=== PATIENT | female | born 1970 | race African-American/Black ===

== ENCOUNTER 2018-04-20 13:45 | Observation (INO) | payer OTHER ==
--- NOTE | 2018-04-20 15:09 | PDOC ---
History of Present Illness - General Chief Complaint: Revisit, Lab Variance Stated Complaint: LAB VARIANCE (PCP SENT) Time Seen by Provider: 04/20/18 14:42 History Source: Patient Exam Limitations: No Limitations - History of Present Illness Initial Comments: 04/20/18 15:06 47 yr female history of hypothyroidsim, fibroids, sent in by her EDUCATIONAL PARAPROFESSIONAL for low h&H. Pt has had heavy menstrual bleeding for 2-3 weeks. Pt feels tired, weak, and has occasional palpitations. Pt denies shortness of breath, no chest pain no dizzyness or abd pain. Timing/Duration: reports: getting worse Quality: reports: mild Past History - Past Medical History Allergies/Adverse Reactions: Allergies Allergy/AdvReac Type Severity Reaction Status Date / Time No Known Allergies Allergy Verified 04/20/18 13:48 Home Medications: Ambulatory Orders Levothyroxine [Synthroid -] 112 mcg PO DAILY 04/20/18 COPD: No Thyroid Disease: Yes - Suicide/Smoking/Psychosocial Hx Smoking History: Never smoked Review of Systems - Review of Systems Able to Perform ROS?: Yes Is the patient limited Turkish proficient: No Constitutional: No: Symptoms Reported HEENTM: No: Symptoms Reported Respiratory: No: Symptoms reported Cardiac (ROS): No: Symptoms Reported ABD/GI: Yes: Symptoms Reported *Physical Exam - Vital Signs Last Vital Signs Temp Pulse Resp BP Pulse Ox 99.1 F 102 H 18 140/73 100 04/20/18 13:46 04/20/18 13:46 04/20/18 13:46 04/20/18 13:46 04/20/18 13:46 - Physical Exam General Appearance: Yes: Nourished, Appropriately Dressed HEENT: positive: EOMI, BK, TMs Normal, Pharynx Normal, Pale Conjunctivae Neck: positive: Supple Respiratory/Chest: positive: Lungs Clear, Normal Breath Sounds Cardiovascular: positive: Regular Rhythm, Regular Rate Gastrointestinal/Abdominal: positive: Soft Musculoskeletal: positive: Normal Inspection Extremity: positive: Normal Capillary Refill, Normal Inspection, Normal Range of Motion Integumentary: positive: Normal Color, Dry, Warm Neurologic: positive: recreational director II-XII NML intact, Fully Oriented, Alert, Normal Mood/ Affect, Normal Response, Motor Strength 5/5 Heart Score/ECG Review - History History: Slightly suspicious - Age Age: 45-65 - Risk Factors Risk Factors Heart Score: No Hx Hypercholesterolemia, No Hx Hypertension, No Hx Diabetes, No Smoking History, No Positive family hx of cardiac disease, No Hx Obesity Based on the list above the patient has:: No risk factors known - ECG Intrepretation Rhythm: Regular Rhythm (NSR HR 81) - ECG Impressions Normal ECG: Yes Non-specific ST Elevation: No Ischemic Changes: No ED Treatment Course - LABORATORY CBC & Chemistry Diagram: 04/21/18 06:30 04/20/18 15:00 Medical Decision Making - Medical Decision Making 04/20/18 15:22 cc: heavy vaginal bleeding, tired, weak sent for low H&H denies chest pain or SOB, no abd pain or urinary symptoms will check labs , possible transfusion 04/20/18 15:32 04/20/18 15:40 2uPRBC placed order 04/20/18 16:27 admit to hospitalist consult plad to EDUCATIONAL PARAPROFESSIONAL 04/20/18 16:32 case discussed with will place in OBS 2UPRBC ordered 04/20/18 17:24 spoke to (EDUCATIONAL PARAPROFESSIONAL) will consult on pt in the hospital, will order pelvic trans vag US *DC/Admit/Observation/Transfer Diagnosis at time of Disposition: Symptomatic anemia - Discharge Dispostion Decision to Admit order: Yes - Referrals - Patient Instructions - Post Discharge Activity
[2018-04-20 15:39] LABS: BASO % 1.6 % (0-2.0); EOS % 1.1 % (0-4.5); HEMATOCRIT 21.3 % (32.4-45.2); LYMPH % 33.8 % (8-40); MCH 17.6 pg (25.7-33.7); MCHC 29.3 g/dl (32.0-36.0); MEAN CELL VOLUME 60.1 fl (80-96); MEAN PLT VOLUME 9.1 fl (7.5-11.1); MONO % 5.6 % (3.8-10.2); NEUT % 57.9 % (42.8-82.8); PLATELET COUNT 463 K/MM3 (134-434); RBC 3.54 M/mm3 (3.60-5.2)
[2018-04-20 15:43] LABS: HEMOGLOBIN 6.2 GM/dL (10.7-15.3)
[2018-04-20 15:48] LABS: INR 1.1 (0.83-1.09)
[2018-04-20 15:51] LABS: ACTIVATED PTT 24.2 SECONDS (25.2-36.5)
[2018-04-20 15:57] LABS: ALBUMIN 3.8 g/dl (3.4-5.0); ALK PHOS 62 U/L (45-117); ANION GAP 7 MMOL/L (8-16); BILIRUBIN,TOTAL 0.2 mg/dL (0.2-1); BLOOD UREA NITROGEN 9 mg/dL (7-18); CALCIUM 9.1 mg/dL (8.5-10.1); CHLORIDE 108 mmol/L (98-107); CO2 25 mmol/L (21-32); CREATININE 0.5 mg/dL (0.55-1.3); GLUCOSE,RANDOM 96 mg/dL (74-106); POTASSIUM 4.3 mmol/L (3.5-5.1); SGOT/AST 18 U/L (15-37); SGPT/ALT 20 U/L (13-61); SODIUM 140 mmol/L (136-145); TOT PROT 7.5 g/dl (6.4-8.2)
--- NOTE | 2018-04-20 16:44 | PDOC ---
*Physical Exam - Vital Signs Last Vital Signs Temp Pulse Resp BP Pulse Ox 99.1 F 102 H 18 140/73 100 04/20/18 13:46 04/20/18 13:46 04/20/18 13:46 04/20/18 13:46 04/20/18 13:46 - Physical Exam General Appearance: Yes: Nourished Neck: positive: Trachea midline Respiratory/Chest: positive: Lungs Clear Cardiovascular: positive: Regular Rhythm, Regular Rate, S1, S2 Musculoskeletal: positive: Normal Inspection Extremity: positive: Normal Capillary Refill, Normal Inspection Integumentary: positive: Normal Color, Dry, Warm Neurologic: positive: cloth brushing and sueding supervisor II-XII NML intact, Fully Oriented, Alert, Normal Mood/ Affect ED Treatment Course - LABORATORY CBC & Chemistry Diagram: 04/20/18 15:00 04/20/18 15:00 - ADDITIONAL ORDERS Additional order review: Laboratory Results 04/20/18 04/20/18 04/20/18 15:00 15:00 15:00 PT with INR 13.00 INR 1.10 H PTT (Actin FS) 24.2 L Sodium 140 Potassium 4.3 Chloride 108 H Carbon Dioxide 25 Anion Gap 7 L BUN 9 Creatinine 0.5 L Creat Clearance w eGFR > 60 Random Glucose 96 Calcium 9.1 Total Bilirubin 0.2 AST 18 ALT 20 Alkaline Phosphatase 62 Total Protein 7.5 Albumin 3.8 Crossmatch See Detail 04/20/18 15:00 RBC 3.54 L MCV 60.1 L MCHC 29.3 L RDW 26.0 H MPV 9.1 Neutrophils % 57.9 Lymphocytes % 33.8 Monocytes % 5.6 Eosinophils % 1.1 Basophils % 1.6 Medical Decision Making - Medical Decision Making 04/20/18 16:42 47 yo F with h/o fibroid uterus, heavy periods here with irregular bleeding between periods for 2 weeks. pt states is still bleeding much less. describes crampy abd pain. does feel lightheaded, and dizzy. no sob no cp. no bloody stool.s was seen by dr Manning, told her hgb was low to come to ED. no other current complaints. 04/20/18 16:43 on exam pt awake alert lungs clear heart rrr no mrg. abd soft mild suprapubic ttp. no rebound no guarding. skin warm and dry. pt seen and examined with Maile Armani, agree with her assessment and plan. will likely need to be admitted for symptomatic anemia. *DC/Admit/Observation/Transfer Diagnosis at time of Disposition: Symptomatic anemia - Referrals Referrals: Nelly Marmolejo DO [Primary Care Provider] - - Patient Instructions - Post Discharge Activity
[2018-04-20 17:17] LABS: ANISOCYTOSIS 3+
--- NOTE | 2018-04-20 20:39 | HP ---
Admitting History and Physical - Primary Care Physician PCP: Car Roldan - Admission History of Present Illness: 47 yo F with h/o fibroid uterus, heavy periods here with irregular bleeding between periods for 2 weeks. pt states is still bleeding much less. describes crampy abd pain. does feel lightheaded, and dizzy. no sob no cp. no bloody stool was seen by dr Burk, told her hgb was low to come to ED. no other current complaints. - Past Medical History Reproductive: Yes: Fibroids - Smoking History Smoking history: Never smoked Home Medications - Allergies Allergies/Adverse Reactions: Allergies Allergy/AdvReac Type Severity Reaction Status Date / Time No Known Allergies Allergy Verified 04/20/18 13:48 - Home Medications Home Medications: Ambulatory Orders Levothyroxine [Synthroid -] 112 mcg PO DAILY 04/20/18 Physical Examination Vital Signs: Vital Signs Temperature 98.4 F 04/20/18 19:54 Pulse Rate 81 04/20/18 19:54 Respiratory Rate 18 04/20/18 19:54 Blood Pressure 113/65 04/20/18 19:54 O2 Sat by Pulse Oximetry (%) 100 04/20/18 19:51 Constitutional: Yes: No Distress HENT: Yes: Atraumatic Neck: Yes: Supple Cardiovascular: Yes: Regular Rate and Rhythm Respiratory: Yes: CTA Bilaterally Gastrointestinal: Yes: Normal Bowel Sounds Extremities: Yes: WNL Edema: No Peripheral Pulses WNL: Yes Neurological: Yes: Alert, Oriented Labs: CBC, BMP 04/20/18 15:00 04/20/18 15:00 Imaging - Results Ultrasound: Report Reviewed Problem List - Problems (1) Symptomatic anemia Assessment/Plan: WILL TRANSFUSE 2 U PRBC FU H/H Code(s): D64.9 - ANEMIA, UNSPECIFIED (2) Fibroids Code(s): D21.9 - BENIGN NEOPLASM OF CONNECTIVE AND OTHER SOFT TISSUE, UNSP Assessment/Plan Laboratory Tests 04/20/18 04/20/18 04/20/18 15:00 15:00 15:00 WBC 10.0 RBC 3.54 L Hgb 6.2 L* Hct 21.3 L MCV 60.1 L MCH 17.6 L MCHC 29.3 L RDW 26.0 H Plt Count 463 H MPV 9.1 Absolute Neuts (auto) 5.8 Neutrophils % 57.9 Lymphocytes % 33.8 Monocytes % 5.6 Eosinophils % 1.1 Basophils % 1.6 Nucleated RBC % 0 Hypochromia 3+ Anisocytosis 3+ PT with INR 13.00 INR 1.10 H PTT (Actin FS) 24.2 L Sodium 140 Potassium 4.3 Chloride 108 H Carbon Dioxide 25 Anion Gap 7 L BUN 9 Creatinine 0.5 L Creat Clearance w eGFR > 60 Random Glucose 96 Calcium 9.1 Total Bilirubin 0.2 AST 18 ALT 20 Alkaline Phosphatase 62 Total Protein 7.5 Albumin 3.8 Urine HCG, Qual Blood Type Antibody Screen Crossmatch 04/20/18 04/20/18 04/20/18 15:00 16:39 17:50 WBC RBC Hgb Hct MCV MCH MCHC RDW Plt Count MPV Absolute Neuts (auto) Neutrophils % Lymphocytes % Monocytes % Eosinophils % Basophils % Nucleated RBC % Hypochromia Anisocytosis PT with INR INR PTT (Actin FS) Sodium Potassium Chloride Carbon Dioxide Anion Gap BUN Creatinine Creat Clearance w eGFR Random Glucose Calcium Total Bilirubin AST ALT Alkaline Phosphatase Total Protein Albumin Urine HCG, Qual Negative Blood Type B POSITIVE B POSITIVE Antibody Screen Negative Crossmatch See Detail
[2018-04-21 00:07] VITALS: BMI 32.0
[2018-04-21] MEDS ORDERED: LEVOTHYROXINE NA 112 MCG TABLET (FP) PO SCH (07:00)
[2018-04-21 08:48] LABS: HEMATOCRIT 24.8 % (32.4-45.2); HEMOGLOBIN 7.9 GM/dL (10.7-15.3); MCHC 31.8 g/dl (32.0-36.0); MEAN CELL VOLUME 65.9 fl (80-96); MEAN PLT VOLUME 9.2 fl (7.5-11.1); PLATELET COUNT 410 K/MM3 (134-434); RBC 3.76 M/mm3 (3.60-5.2); RDW 32.4 % (11.6-15.6)
[2018-04-21 10:29] LABS: ANISOCYTOSIS 2+; MACROCYTOSIS 1+; OVALOCYTE 1+; PLATELET ESTIMATE NORMAL; TARGET CELLS 1+
--- NOTE | 2018-04-21 13:10 | EKG ---
Test Reason : Blood Pressure : / mmHG Vent. Rate : 081 BPM Atrial Rate : 081 BPM P-R Int : 114 ms QRS Dur : 066 ms QT Int : 382 ms P-R-T Axes : 046 024 016 degrees QTc Int : 443 ms POOR DATA QUALITY, INTERPRETATION MAY BE ADVERSELY AFFECTED NORMAL SINUS RHYTHM NORMAL ECG NO PREVIOUS ECGS AVAILABLE Confirmed by MD CONG, PALMIRA ([id number]) on 04/21/2018 1:10:09 PM Referred By: Confirmed By:PALMIRA GAR MD
[2018-04-21 15:24] VITALS: BP 116/73; PULSE 84; TEMP 98.8
--- NOTE | 2018-04-21 15:36 | DS ---
Physical Examination Vital Signs: Vital Signs Temperature 98.8 F 04/21/18 15:22 Pulse Rate 84 04/21/18 15:22 Respiratory Rate 18 04/21/18 15:22 Blood Pressure 116/73 04/21/18 15:22 O2 Sat by Pulse Oximetry (%) 100 04/21/18 08:00 Constitutional: Yes: No Distress HENT: Yes: Atraumatic Neck: Yes: Supple Cardiovascular: Yes: Regular Rate and Rhythm Respiratory: Yes: CTA Bilaterally Gastrointestinal: Yes: Normal Bowel Sounds Extremities: Yes: WNL Neurological: Yes: Alert, Oriented Labs: CBC, BMP 04/21/18 06:30 04/20/18 15:00 Discharge Summary Reason For Visit: SECONDARY ANEMIA Current Active Problems Symptomatic anemia (Acute) - Instructions Diet, Activity, Other Instructions: check cbc in 2-3 days Follow up with private BOTTOM CRANE OPERATOR Doctor Referrals: Anahi Thibodeaux MD [Staff Physician] - Nelly Marmolejo DO [Primary Care Provider] - Disposition: HOME - Home Medications Comprehensive Discharge Medication List: Ambulatory Orders Levothyroxine [Synthroid -] 112 mcg PO DAILY 04/20/18 see your bucket hooker fu cbc
== END 2018-04-21 16:45 | disposition home or self-care (01) ==
LOC: JER 13:45 → JERBED 16:31 → J8W 23:51
PROVIDERS: ADMIT Internal Medicine; ATTEND Internal Medicine
PROC: 30233N1 Transfusion of Nonautologous Red Blood Cells into Peripheral Vein, Percutaneous Approach (ICD-10-PCS; principal; 2018-04-20)
DX: D64.89 Other specified anemias (principal); D21.9 Benign neoplasm of connective and other soft tissue, unspecified; E03.9 Hypothyroidism, unspecified
CPT/HCPCS: 36415; 36430; 76830-TC; 80053; 84703; 85025; 85610; 85730; 86850; 86900; 86901; 86922; 93005; 93010; 99285-25; G0378; P9038; P9058

== ENCOUNTER 2018-06-01 04:58 | Inpatient (IN) | payer OTHER ==
[2018-05-26 13:19] VITALS: BMI 35.9
[2018-06-01] MEDS ORDERED: CEFAZOLIN 1 GM in DEXTROSE 5%-WATER - 50 ML IVPB ONE (06:51)
[2018-06-01] MEDS ORDERED: ROCURONIUM BROMIDE 50 MG/5 ML VIAL ONE ×2 (07:30→09:39)
[2018-06-01] MEDS ORDERED: fentaNYL CITRATE 250 MCG/5 ML VIAL ONE (07:30)
[2018-06-01] MEDS ORDERED: MIDAZOLAM HCL 2 MG/2 ML SINGLE DOSE VIAL ONE (07:30)
[2018-06-01] MEDS ORDERED: SUCCINYLCHOLINE CHLORIDE 200 MG/10 ML VIAL ONE (07:30)
[2018-06-01] MEDS ORDERED: PROPOFOL 20 ML ONE ×2 (07:30→09:39)
[2018-06-01] MEDS ORDERED: DEXAMETHASONE SOD PHOSPHATE 4 MG/1 ML VIAL ONE ×3 (07:31→11:11)
[2018-06-01] MEDS ORDERED: LIDOCAINE HCL/PF 2% SDV 5ML VIAL ONE ×2 (07:31→09:38)
[2018-06-01] MEDS ORDERED: PHENAZOPYRIDINE HCL 100 MG TABLET (FP) ONE (07:40)
[2018-06-01] MEDS ORDERED: ceFAZolin SODIUM 1 GM VIAL ONE ×2 (07:41→19:33)
--- NOTE | 2018-06-01 08:00 | HP ---
History & Physical Update - History History: No Change - Physical Physical: No Change - Assessment Assessment: No Change - Plan Plan: No Change (No change in HP)
[2018-06-01] MEDS: PHENAZOPYRIDINE HCL 100 MG TABLET (FP) PO ONE (08:10)
[2018-06-01] MEDS ORDERED: ACETAMINOPHEN 325 MG TABLET (FP) PO PRN (08:11)
[2018-06-01] MEDS ORDERED: IBUPROFEN 800 MG/8 ML IJ IVPB PRN (08:11)
[2018-06-01] MEDS ORDERED: BUPIVACAINE HCL/PF 0.5% (5MG/ML) 10 ML VIAL ONE (09:26)
[2018-06-01] MEDS ORDERED: ceFAZolin SODIUM 1 GM VIAL IVPB ONE (09:43)
[2018-06-01] MEDS ORDERED: PROMETHAZINE HCL 25 MG/1 ML VIAL IVPB PRN (10:22)
[2018-06-01] MEDS ORDERED: ONDANSETRON 4 MG/2 ML VIAL IVPUSH PRN (10:22)
[2018-06-01] MEDS ORDERED: DEXAMETHASONE SOD PHOSPHATE 4 MG/1 ML VIAL IVPUSH PRN (10:22)
[2018-06-01] MEDS ORDERED: PROMETHAZINE HCL 25 MG/1 ML VIAL IVPUSH PRN (10:22)
[2018-06-01] MEDS ORDERED: GLYCOPYRROLATE 0.2 MG/1 ML VIAL ONE (11:36)
[2018-06-01] MEDS ORDERED: BENZOIN TINCTURE SWABSTICK TP ONE (11:47)
--- NOTE | 2018-06-01 12:07 | OP ---
Operative Note - Note: Operative Date: 06/01/18 Pre-Operative Diagnosis: Anemia, menorrhagia, uterine leiomas Operation: Total abdominal hysterectomy (open), bilateral salpingectomy Findings: as dictated Implants: none Post-Operative Diagnosis: Same as Pre-op Surgeon: Anahi Thibodeaux Client Experience Manager: Víctor Trisatn Anesthesiologist/CYLINDER BLOCK MECHANIC: Darvin Nelson Anesthesia: General Specimens Removed: Uterus, bilateral uterine tubes Estimated Blood Loss (mls): 600 (ml) Drains & Tubes with Location: none Drains, Volume Out (mls): 175 (ml urine (orange-pyridium))
--- NOTE | 2018-06-01 12:08 | SURG ---
Surgery Assembler And Tester Electronics Note Assembler And Tester Electronics: Víctor Tristan PA-C (Suzy) Date of Service: 06/01/18 Diagnosis: Anemia, menorrhagia, uterine leiomas Procedure: Total abdominal hysterectomy (open), bilateral salpingectomy I was present for the entirety of the operative procedure. For further detail, please refer to operative report. Visit type - Case Type Case Type: Scheduled - Emergency Emergency Visit: No - New patient This patient is new to me today: Yes Date on this admission: 06/01/18 - Critical Care Critical Care patient: No
[2018-06-01] MEDS: HYDROmorphone *PCA* 10MG/50ML DISP.SYRIN PCA SCH (12:12)
[2018-06-01] MEDS ORDERED: LACTATED RINGERS SOLUTION 1,000 ML/1,000 ML INFUS.BAG IV SCH (12:15)
[2018-06-01] MEDS ORDERED: ACETAMINOPHEN 1000 MG/100 ML VIAL (NON FORMULARY) IVPB ONE (12:18)
--- NOTE | 2018-06-01 14:46 | OP ---
Operative Note - Note: Operative Date: 06/01/18 Pre-Operative Diagnosis: Leiomyomatous Uterus. Pelvic Pain. Anemia. Menorrhagia Operation: Total Abdominal Hysterectomy. Bilateral salpingectomy Findings: Uterus 20 leiomyomatous uterus Post-Operative Diagnosis: Same as Pre-op Surgeon: Anahi Thibodeaux Grounds Worker: Víctor Tristan Anesthesiologist/FINANCIAL SPECIALIST: Darvin Nelson Anesthesia: General Specimens Removed: Uterus 20 cm leiomyomatous uterus Estimated Blood Loss (mls): 700 Operative Report Dictated: Yes
[2018-06-01] MEDS ORDERED: CEFAZOLIN 1 GM/D5W 1 GM/50 ML BAG IVPB SCH ×2 (16:00→19:00)
[2018-06-01 16:57] LABS: BASO % 0.3 % (0-2.0); HEMATOCRIT 27.8 % (32.4-45.2); HEMOGLOBIN 9.5 GM/dL (10.7-15.3); MCH 25.3 pg (25.7-33.7); MCHC 34.2 g/dl (32.0-36.0); MEAN PLT VOLUME 9.9 fl (7.5-11.1); MONO % 2.2 % (3.8-10.2); NEUT % 93.5 % (42.8-82.8); PLATELET COUNT 262 K/MM3 (134-434); RBC 3.76 M/mm3 (3.60-5.2); RDW 27.9 % (11.6-15.6); WHITE BLOOD COUNT 13.9 K/mm3 (4.0-10.0)
[2018-06-01 17:31] LABS: ANION GAP 8 MMOL/L (8-16); BLOOD UREA NITROGEN 9 mg/dL (7-18); CALCIUM 8.4 mg/dL (8.5-10.1); CHLORIDE 107 mmol/L (98-107); CO2 23 mmol/L (21-32); CREATININE 0.6 mg/dL (0.55-1.3); GLUCOSE,RANDOM 142 mg/dL (74-106); POTASSIUM 4.4 mmol/L (3.5-5.1); SODIUM 137 mmol/L (136-145)
[2018-06-01 18:49] LABS: ANISOCYTOSIS 3+; MACROCYTOSIS 2+; PLATELET ESTIMATE ADEQUATE
--- NOTE | 2018-06-01 18:53 | OP ---
DATE OF OPERATION: 06/01/2018 PREOPERATIVE DIAGNOSES: Leiomyomas of uterus, pelvic pain, anemia, menorrhagia. OPERATION: Total abdominal hysterectomy and bilateral salpingectomy. SURGEON: Hannah Ladd MD PLANT CUSTODIAN: YOSSI Tristan ANESTHESIOLOGIST: Darvin Nelson MD ANESTHESIA: General. ESTIMATED BLOOD LOSS: 700 mL. PROCEDURE: Patient was taken to the operating room, placed in supine position, prepped and draped in the usual sterile fashion. A timeout was performed in accordance with hospital regulation. Ayala catheter was inserted into the bladder. Attention was turned to the abdomen where a Pfannenstiel skin incision was made with the scalpel. Cautery was then used to go through layers of abdominal wall to the level of the fascia. Fascia was cut in the midline and cautery was then used to open the fascia in smiling fashion. Kochers were then used to bluntly and sharply dissect the rectus muscle of the fascia. Uterus was noted to be attached to the anterior abdominal wall. Entry into the uterus was then done. Peritoneum was then entered on the side and cautery was then used to remove the uterus from the anterior abdominal wall. Uterus was then exteriorized. A large multiple leiomyomatous uterus 18 cm was noted. Tubes and ovaries noted to be normal. LigaSure was then used to clamp the uterine ovarian ligament. The round ligament was identified and clamped and cut. Uterine arteries were identified, clamped, and cut. Cardinal ligament was identified, clamped, and cut. After bladder had been taken down and bluntly dissected out of the operative field, same procedure was repeated on the other side. The ligaments were then clamped and cut down to the level of the cervix. Vagina was then entered, and Donny was used to cut the vagina away from the cervix. The uterus and cervix was then placed passed to Pathology. Tubes are bilaterally grasped and coagulated and cut and also removed and submitted to Pathology. Ovaries were noted to be normal. Cuff was then closed using 0 Vicryl suture in a continuous locking fashion. Bleeders were identified and clamped and tied. Ureters were identified and found to have peristalsis. Pyridium had been given to the patient and urine was noted to be orange with no blood. Irrigation was done. Peritoneum was then closed in a continuous fashion. Rectus Muscle that was cut and beginning of case , pursestring was then used to bring the muscle back together. The fascia was then closed in a continuous fashion. Muscles approximated in midline again. Subcutaneous was closed using 0 Vicryl sutures. Skin was then closed using 3-0 Vicryl in subcuticular fashion. Wound was washed and dressed. Patient tolerated the procedure well and was taken to recovery room in stable condition. Pad count was noted to be normal. HANNAH LADD M.D. [id number] MTDD
[2018-06-01] MEDS ORDERED: DEXTROSE 5%-WATER - 50 ML IVPB ONE (19:32)
[2018-06-01] MEDS: CEFAZOLIN 1 GM in DEXTROSE 5%-WATER - 50 ML IVPB SCH (19:35)
[2018-06-02] MEDS ORDERED: DEXTROSE 5%-WATER - 50 ML IVPB ONE ×2 (03:17→10:50)
[2018-06-02] MEDS ORDERED: ceFAZolin SODIUM 1 GM VIAL ONE ×2 (03:17→10:50)
[2018-06-02] MEDS: CEFAZOLIN 1 GM in DEXTROSE 5%-WATER - 50 ML IVPB SCH ×2 (03:24→10:53)
[2018-06-02] MEDS: PHENAZOPYRIDINE HCL 100 MG TABLET (FP) PO ONE (07:24)
[2018-06-02 07:48] LABS: BASO % 0.1 % (0-2.0); HEMATOCRIT 23.2 % (32.4-45.2); HEMOGLOBIN 8.1 GM/dL (10.7-15.3); LYMPH % 15.8 % (8-40); MCH 25.9 pg (25.7-33.7); MCHC 34.7 g/dl (32.0-36.0); MEAN CELL VOLUME 74.5 fl (80-96); MEAN PLT VOLUME 9.2 fl (7.5-11.1); NEUT % 74.1 % (42.8-82.8); PLATELET COUNT 235 K/MM3 (134-434); RBC 3.11 M/mm3 (3.60-5.2); RDW 27.6 % (11.6-15.6); WHITE BLOOD COUNT 7.9 K/mm3 (4.0-10.0)
[2018-06-02 08:04] LABS: ANION GAP 8 MMOL/L (8-16); BLOOD UREA NITROGEN 6 mg/dL (7-18); CALCIUM 8.3 mg/dL (8.5-10.1); CHLORIDE 104 mmol/L (98-107); CO2 27 mmol/L (21-32); CREATININE 0.6 mg/dL (0.55-1.3); GLUCOSE,RANDOM 104 mg/dL (74-106); POTASSIUM 3.7 mmol/L (3.5-5.1); SODIUM 138 mmol/L (136-145)
--- NOTE | 2018-06-02 09:19 | PN ---
Progress Note (short form) - Note Progress Note: 47F s/p ZITA POD 1, pt seen and examined sitting in chair. Pt denies n/v, fever , chills. Pt had matamoros removed last night and is urinating well. Pt is ambulating well. Pt denies vaginal bleeding. Last Vital Signs Temp Pulse Resp BP Pulse Ox 97.6 F 74 20 134/72 100 06/02/18 02:00 06/02/18 02:00 06/02/18 02:00 06/02/18 02:00 06/01/18 13:40 CBC, BMP 06/02/18 06:30 06/02/18 06:30 PE: Gen: A&O x3 Resp: breathing comfortably Abd: soft, nondistended, mild tenderness, incision is clean with no erythema or discharge. Ext: no edema Problem List - Problems (1) Fibroids Assessment/Plan: Plan -advance diet as tolerated -wean off ARMATURE AND ROTOR WINDER to PO pain meds -continue abx for 24hrs -dvt ppx -will see how pt is doing for discharge, most likely discharge tomorrow, but if doing well could consider late afternoon/early evening. Code(s): D21.9 - BENIGN NEOPLASM OF CONNECTIVE AND OTHER SOFT TISSUE, UNSP
[2018-06-02] MEDS ORDERED: PCA PUMP KEY 1 EACH EACH ONE (09:30)
[2018-06-02] MEDS: HYDROmorphone *PCA* 10MG/50ML DISP.SYRIN PCA SCH (10:33)
[2018-06-02] MEDS: ENOXAPARIN NA (PORCINE) 40 MG/0.4 ML DISP.SYRIN SQ SCH (10:53)
[2018-06-02] MEDS: oxyCODONE HCL 5 MG TABLET PO PRN ×3 (11:00→21:21)
[2018-06-02] MEDS: ACETAMINOPHEN 325 MG TABLET (FP) PO PRN ×2 (11:02→21:22)
--- NOTE | 2018-06-02 14:03 | PN ---
Progress Note (short form) - Note Progress Note: Anesthesia postop note and pain management follow up 47 y/o F s/p GA for ZITA, salpingectomy, dilaudid retort engineer for postop pain management. POD#!, vss, aaox3, pain well controlled, no complaints. hammer mill operator d/jael today. No anesthesia complications.
[2018-06-02] MEDS ORDERED: BISACODYL 10 MG SUPP.RECT RC ONE (20:15)
--- NOTE | 2018-06-03 06:44 | PN ---
Progress Note (SOAP) - Subjective Chief Complaint: Pt doing well + flatus removed dressing last night - Current Medications Current Medications: Active Medications Acetaminophen (Tylenol -) 650 mg PO Q4H PRN PRN Reason: FEVER Last Admin: 06/02/18 21:22 Dose: 650 mg Dexamethasone Sodium Phosphate (Decadron Injection -) 4 mg IVPUSH ONCE PRN PRN Reason: NAUSEA AND/OR VOMITING Diphenhydramine HCl (Benadryl Injection -) 12.5 mg IVPUSH ONCE PRN PRN Reason: FOR ITCHING Last Admin: 06/01/18 20:34 Dose: 12.5 mg Enoxaparin Sodium (Lovenox -) 40 mg SQ DAILY [facility] Last Admin: 06/02/18 10:53 Dose: 40 mg Lactated Ringer's (Lactated Ringers Solution) 1,000 ml in 1,000 mls @ 125 mls/ hr IV ASDIR [facility] Last Admin: 06/01/18 12:12 Dose: 250 mls Ibuprofen (Caldolor Injection -) 800 mg IVPB Q8H PRN PRN Reason: FEVER Ondansetron HCl (Zofran Injection) 4 mg IVPUSH Q4H PRN PRN Reason: NAUSEA AND/OR VOMITING Oxycodone HCl (Roxicodone -) 5 mg PO Q4H PRN PRN Reason: PAIN LEVEL 4 - 6 Last Admin: 06/02/18 11:00 Dose: 5 mg Oxycodone HCl (Roxicodone -) 10 mg PO Q4H PRN PRN Reason: PAIN LEVEL 7 - 10 Last Admin: 06/02/18 21:21 Dose: 10 mg - Objective Vital Signs: Vital Signs Temperature 99.3 F 06/02/18 22:00 Pulse Rate 90 06/02/18 22:00 Respiratory Rate 20 06/02/18 22:00 Blood Pressure 127/62 06/02/18 22:00 O2 Sat by Pulse Oximetry (%) 100 06/01/18 13:40 Constitutional: Yes: Well Nourished, No Distress HENT: Yes: WNL Neck: Yes: WNL Gastrointestinal: Yes: WNL, Soft Musculoskeletal: Yes: WNL Extremities: Yes: WNL Peripheral Pulses WNL: No Labs Lab Results: CBC, BMP 06/02/18 06:30 06/02/18 06:30 Assessment/Plan POD2 stable DC home in am
--- NOTE | 2018-06-03 08:18 | DS ---
Physical Exam: SUBJECTIVE: Patient seen and examined OBJECTIVE: 47yo F presented to the hospital for scheduled open abdominal hysterectomy. Pt tolerated the procedure well and was admitted to the hospital for observation. Pt currently ambulating and urinating well. Pt tolerating PO. Denies fever, chills, n/v. Pt states that her pain is controlled with pain medication. Vital Signs Temperature 99.3 F 06/02/18 22:00 Pulse Rate 90 06/02/18 22:00 Respiratory Rate 20 06/02/18 22:00 Blood Pressure 127/62 06/02/18 22:00 O2 Sat by Pulse Oximetry (%) 100 06/01/18 13:40 PHYSICAL EXAM GENERAL: The patient is awake, alert, and fully oriented, in no acute distress. HEAD: Normal with no signs of trauma. EYES: PERRL, extraocular movements intact, sclera anicteric, conjunctiva clear. ENT: Ears normal, nares patent, oropharynx clear without exudates, moist mucous membranes. NECK: Trachea midline, full range of motion, supple. LUNGS: Breath sounds equal, clear to auscultation bilaterally, no wheezes, no crackles, no accessory muscle use. HEART: Regular rate and rhythm ABDOMEN: Soft, nontender, nondistended, normoactive bowel sounds, no guarding, no rebound, no hepatosplenomegaly, no masses. Incision is clean with no erythema or discharge EXTREMITIES: warm, well-perfused, no edema. NEUROLOGICAL: Normal speech, gait not observed. PSYCH: Normal mood, normal affect. SKIN: Warm, dry, normal turgor, no rashes or lesions noted. LABS CBC,CMP WBC 7.9 K/mm3 (4.0-10.0) 06/02/18 06:30 RBC 3.11 M/mm3 (3.60-5.2) L 06/02/18 06:30 Hgb 8.1 GM/dL (10.7-15.3) L 06/02/18 06:30 Hct 23.2 % (32.4-45.2) L D 06/02/18 06:30 MCV 74.5 fl (80-96) L 06/02/18 06:30 MCH 25.9 pg (25.7-33.7) 06/02/18 06:30 MCHC 34.7 g/dl (32.0-36.0) 06/02/18 06:30 RDW 27.6 % (11.6-15.6) H 06/02/18 06:30 Plt Count 235 K/MM3 (134-434) 06/02/18 06:30 MPV 9.2 fl (7.5-11.1) 06/02/18 06:30 Absolute Neuts (auto) 5.8 K/mm3 (1.5-8.0) 06/02/18 06:30 Neutrophils % 74.1 % (42.8-82.8) D 06/02/18 06:30 Neutrophils % (Manual) 89.0 % (42.8-82.8) H 06/01/18 15:40 Band Neutrophils % 4.0 % 06/01/18 15:40 Lymphocytes % 15.8 % (8-40) D 06/02/18 06:30 Lymphocytes % (Manual) 4.0 % (8-40) L D 06/01/18 15:40 Monocytes % 10.0 % (3.8-10.2) D 06/02/18 06:30 Monocytes % (Manual) 3 % (3.8-10.2) L 06/01/18 15:40 Eosinophils % 0.0 % (0-4.5) 06/02/18 06:30 Basophils % 0.1 % (0-2.0) 06/02/18 06:30 Nucleated RBC % 0 % (0-0) 06/02/18 06:30 Hypochromia 2+ 06/01/18 15:40 Platelet Estimate Adequate 06/01/18 15:40 Platelet Comment No clumping noted 06/01/18 15:40 Anisocytosis 3+ 06/01/18 15:40 Microcytosis 2+ 06/01/18 15:40 Macrocytosis 2+ 06/01/18 15:40 Sodium 138 mmol/L (136-145) 06/02/18 06:30 Potassium 3.7 mmol/L (3.5-5.1) 06/02/18 06:30 Chloride 104 mmol/L (98-107) 06/02/18 06:30 Carbon Dioxide 27 mmol/L (21-32) 06/02/18 06:30 Anion Gap 8 MMOL/L (8-16) 06/02/18 06:30 BUN 6 mg/dL (7-18) L 06/02/18 06:30 Creatinine 0.6 mg/dL (0.55-1.3) 06/02/18 06:30 Creat Clearance w eGFR > 60 (>60) 06/02/18 06:30 Random Glucose 104 mg/dL (74-106) 06/02/18 06:30 Calcium 8.3 mg/dL (8.5-10.1) L 06/02/18 06:30 Serum , Qual Negative 06/01/18 07:27 HOSPITAL COURSE: Date of Admission:06/01/18 Date of Discharge: 06/03/18 Minutes to complete discharge: 15 Visit type - Case Type Case Type: Scheduled - Emergency Emergency Visit: No - New patient This patient is new to me today: Yes Date on this admission: 06/01/18
[2018-06-03 08:19] LABS: BASO % 0.7 % (0-2.0); EOS % 0.1 % (0-4.5); HEMATOCRIT 21.2 % (32.4-45.2); HEMOGLOBIN 7.4 GM/dL (10.7-15.3); LYMPH % 15.1 % (8-40); MCH 25.9 pg (25.7-33.7); MCHC 34.9 g/dl (32.0-36.0); MEAN CELL VOLUME 74.2 fl (80-96); MEAN PLT VOLUME 9.7 fl (7.5-11.1); MONO % 7.7 % (3.8-10.2); NEUT % 76.4 % (42.8-82.8); PLATELET COUNT 218 K/MM3 (134-434); RBC 2.85 M/mm3 (3.60-5.2); RDW 26.7 % (11.6-15.6); WHITE BLOOD COUNT 7.4 K/mm3 (4.0-10.0)
[2018-06-03 09:31] LABS: ANION GAP 7 MMOL/L (8-16); BLOOD UREA NITROGEN 4 mg/dL (7-18); CALCIUM 8.1 mg/dL (8.5-10.1); CHLORIDE 105 mmol/L (98-107); CO2 28 mmol/L (21-32); CREATININE 0.5 mg/dL (0.55-1.3); GLUCOSE,RANDOM 95 mg/dL (74-106); POTASSIUM 3.7 mmol/L (3.5-5.1); SODIUM 140 mmol/L (136-145)
[2018-06-03] MEDS: ENOXAPARIN NA (PORCINE) 40 MG/0.4 ML DISP.SYRIN SQ SCH (09:37)
[2018-06-03 10:44] VITALS: BP 111/60; PULSE 85; TEMP 98.9
[2018-06-03] MEDS: oxyCODONE HCL 5 MG TABLET PO PRN (12:54)
--- NOTE | 2018-06-03 17:54 | PATH ---
Surgical Pathology Report Patient Name: NOMI MCDANIELS [facility]. Rec. 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 Specimen(s) Received A: PORTION OF RIGHT FALLOPIAN TUBE B: FIBROIDS C: UTERUS, CERVIX, WITH LEFT FALLOPIAN TUBE Clinical History Anemia, menorrhagia, leiomyoma of uterus, pain Final Diagnosis A. RIGHT FALLOPIAN TUBE, RESECTION: PORTION OF FALLOPIAN TUBE WITH FOCAL ENDOSALPINGIOSIS. B. FIBROIDS, EXCISION: TWO LEIOMYOMAS WITH FOCAL DEGENERATIVE CHANGE. C. UTERUS, CERVIX, LEFT FALLOPIAN TUBE, HYSTERECTOMY AND LEFT SALPINGECTOMY: LEIOMYOMATA. ADENOMYOSIS. PROLIFERATIVE ENDOMETRIUM. CERVIX WITH SQUAMOUS METAPLASIA. LEFT FALLOPIAN TUBE WITH PARATUBAL CYST. Electronically Signed Lam Walker M.D. Gross Description A. Received in formalin labeled "right portion of fallopian tube," is a 2 cm in length fimbriated portion of fallopian tube. The outer surface is hensley johnson and smooth. Sectioning reveals an unremarkable lumen. [employer] D[employer] Instructor sections are submitted in 2 cassettes as follows: 1-fimbria; 2-cross sections of fallopian tube. B. Received in formalin labeled "fibroids," is a 67 g aggregate of 2 hensley, firm nodules measuring 3.5 and 6.0 cm in greatest dimension, consistent with leiomyoma. Sectioning of the smaller nodule reveals foci of degeneration. Sectioning of the larger nodule reveals hensley, firm to rubbery parenchyma with whorled architecture. No areas of hemorrhage or necrosis are identified. [employer] D[employer] Instructor sections are submitted in 5 cassettes as follows: 1-2-smaller nodule; 3-5-larger nodule. C. Received in formalin labeled "uterus with cervix and left fallopian tube," is an 825 g uterus with an attached cervix and an attached left fallopian tube. The serosa is hensley and smooth. The specimen measures 15 cm from superior to inferior, 13 cm from left to right and 9 cm from anterior to posterior. The attached cervix measures 3.5 cm in length and averages 2.5 cm in diameter. The ectocervix is hensley-pink, smooth and glistening. The endocervix is unremarkable. The endometrial cavity measures 7 cm in length and 2.7 cm from cornu to cornu. The endometrium is hensley-red and measures up to 0.2 cm in thickness. The myometrium displays abundant intramural nodules, measuring up to 4.7 cm in greatest dimension. The largest intramural nodule is degenerative. The remaining intramural nodules are hensley and rubbery with whorled architecture. The remaining myometrium is hensley-pink and measures up to 6 cm in thickness. The left fimbriated fallopian tube measures 6 cm in length. The outer surface is hensley-harvey with a 1.6 cm in greatest dimension serous paratubal cyst. Sectioning of the fallopian tube reveals an unremarkable lumen. [employer] D[employer] Instructor sections are submitted in 14 cassettes as follows: 1-anterior cervix; 2-posterior cervix; 5-1-scitwnsp endomyometrium; 5-0-bufmfzxtn endomyometrium; 7-8-largest, degenerative intramural nodule; 9-20-zargywqhrn intramural nodules; 12-left fallopian tube fimbria; 13-left paratubal cyst; 14-cross sections of left fallopian tube. 06/02/2018 [facility]06/02/2018
== END 2018-06-03 14:00 | disposition home or self-care (01) | DRG 519 ==
LOC: JSAMEDAYSX 04:58 → J3W 13:32
PROVIDERS: ADMIT Obstetrics & Gynecology; ATTEND Obstetrics & Gynecology
PROC: 0UT70ZZ Resection of Bilateral Fallopian Tubes, Open Approach (ICD-10-PCS; 2018-06-01)
PROC: 0UT90ZZ Resection of Uterus, Open Approach (ICD-10-PCS; principal; 2018-06-01 09:00)
DX: D25.9 Leiomyoma of uterus, unspecified (principal); N92.0 Excessive and frequent menstruation with regular cycle; D64.9 Anemia, unspecified
CPT/HCPCS: 36415; 80048; 84703; 85025; 86850; 86900; 86901; 86922; 88302-TC; 88305-TC; 88307-TC; 94760; J0131